=== PATIENT | male | born 1945 | race Caucasian/White ===

== ENCOUNTER 2017-10-07 14:40 | Outpatient (CLI) | payer MEDICARE ==
[2017-10-07] MEDS ORDERED: Gadobenate Dimeglumine 529 MG/1 ML (20ML VIAL) ONE (16:33)
--- NOTE | 2017-10-08 13:59 | MRI ---
MRI ABDOMEN WITH AND WITHOUT CONTRAST: HISTORY: Liver mass. COMPARISON: CT abdomen from 10/26/2016, CTA chest from 09/26/2011, and CT abdomen from 09/23/2013. TECHNIQUE: Multiplanar, multisequence MR images were obtained of the abdomen with and without IV contrast. FINDINGS: There are numerous well circumscribed foci of high T2 signal, lacking enhancement, scattered througho ut the liver, which represent simple cysts. There is a large, well circumscribed, nonenhancing mass measuring 10.9 cm in size that demonstrates isointense T1 signal and hyperintense T2 signal. This li chris represents a proteinaceous cyst. In the left lobe of the liver, there is a complex, well circum scribed structure demonstrating high T1 and heterogeneous T2 signal. After the administration of con trast, this area does not enhance when looking at the subtraction images, and this likely also repres ents a proteinaceous complex cyst. No suspicious enhancement is seen in the liver. No biliary dilat ation is present. There are peripelvic cysts in the left kidney, measuring up to 3.4 cm in size. The right kidney is n ot seen and may be surgically absent. The gallbladder, left adrenal gland, spleen, and pancreas are unremarkable. No abdominal adenopathy is seen. No marrow signal abnormality is present. The visualized inferior thorax and abdominal wall soft tiss ues are unremarkable. IMPRESSION: 1. There are numerous cysts in the liver. Two of these cysts are proteinaceous cysts with varying s ignal, as above. No abnormal enhancement is seen to suggest that any of these cysts are suspicious. 2. Parapelvic left renal cysts. 3. Absent right kidney. POS: [facility]
== END 2017-10-07 14:41 | disposition home or self-care (01) ==
LOC: MRI 14:40
PROVIDERS: ATTEND Family Medicine
DX: R16.0 Hepatomegaly, not elsewhere classified (principal); K76.89 Other specified diseases of liver; N28.1 Cyst of kidney, acquired; Z90.5 Acquired absence of kidney
CPT/HCPCS: 74183; 82565; A9579

== ENCOUNTER 2018-11-16 09:39 | Outpatient (CLI) | payer MEDICARE ==
[2018-11-16] MEDS ORDERED: Gadobenate Dimeglumine 529 MG/1 ML (20ML VIAL) ONE (10:15)
--- NOTE | 2018-11-16 12:03 | MRI ---
MRI ABDOMEN WITHOUT AND WITH CONTRAST: Comparison: 10-07-17 History: Status post right nephrectomy for renal cell cancer. Multiple cysts seen on prior MRI. Follo w up examination. Technique: Multiplanar, multisequence MRI images were obtained of the abdomen without and with IV con trast. FINDINGS: There are innumerable cysts in the liver. The largest measures 10.6 cm in greatest dimension. There i s a complex cyst containing high T1 signal in the left lobe of the liver which is stable measuring 6. 3 cm in greatest dimension. No biliary dilatation is seen. The gallbladder, common bile duct, left adrenal gland, spleen, and pancreas are unremarkable. The rig ht adrenal gland is not seen and may have also been removed. There are multiple stable parapelvic cys ts in the left kidney measuring up to 3.3 cm in size. No abdominal adenopathy is seen. No marrow signal abnormality is present. No abnormal enhancement is seen on this examination. IMPRESSION: 1. No evidence of recurrent or metastatic disease. 2. Stable left parapelvic renal cyst. 3. Stable hepatic cyst. POS: [facility]
== END 2018-11-16 09:40 | disposition home or self-care (01) ==
LOC: BICMRI 09:39
PROVIDERS: ATTEND Urology
DX: C64.1 Malignant neoplasm of right kidney, except renal pelvis (principal); C64.2 Malignant neoplasm of left kidney, except renal pelvis; N28.1 Cyst of kidney, acquired; K76.89 Other specified diseases of liver
CPT/HCPCS: 74183; A9577

== ENCOUNTER 2019-12-23 08:48 | Emergency (ER) | payer MEDICARE ==
[2019-12-23] MEDS ORDERED: Ondansetron PF 4 MG/2 ML Vial ONE (09:13)
[2019-12-23] MEDS ORDERED: Iopamidol-370 76% 500 ML 1 ML ONE (09:23)
--- NOTE | 2019-12-23 09:28 | RAD ---
Chest one view HISTORY: Dyspnea. Syncope. COMPARISON: 11/01/2018. FINDINGS: Cardiac silhouette is magnified by projection. Pulmonary vasculature is unremarkable. Mediastinum is midline with postoperative changes. Scattered calcified granulomata are consistent with healed granulomatous disease. No lobar consolidat ion or evidence of pneumothorax. associate software developer leads overlie the chest. IMPRESSION : Chronic-type findings are stable. No active cardiopulmonary abnormalities are demonstrated.
[2019-12-23 09:42] LABS: #Eosinphils 0.1 thou/uL (0.0-0.7); #Lymphocytes 1.1 thou/uL (1.20-3.40); #Monocytes 0.8 thou/uL (0.11-0.59); #Neutrophils 4.8 thou/uL (1.40-6.50); %Basophils 0.2 % (0.0-1.0); %Eosinophils 2.1 % (0.0-10.0); %Lymphocytes 16.1 % (21.0-51.0); %Monocytes 11.3 % (0.0-10.0); %Neutrophils 70.4 % (42.0-75.0); Mean Corpuscular HGB CONC 32.9 g/dL (32.0-36.0); Mean Corpuscular Volume 94.2 fL (78.0-98.0); Mean Platelet Volume 8.9 fL (7.4-10.4); Platelet Count 147 thou/uL (130-400); RBC Distribution Width 12.4 % (11.5-14.5); Red Blood Cell (RBC) Count 4.85 mill/uL (4.70-6.10); White Blood Cell (WBC) Count 6.8 thou/uL (4.8-10.8)
[2019-12-23 10:01] LABS: ALT (SGPT) 21 U/L (8-55); AST (SGOT) 27 U/L (5-34); Albumin 4.1 g/dL (3.4-4.8); Alkaline Phosphatase 93 U/L (40-110); Anion Gap 13 mmol/L (10-20); BUN (Urea Nitrogen) 20 mg/dL (8.4-25.7); Bilirubin, Total 0.8 mg/dL (0.2-1.2); CK (CPK) 373 U/L (30-200); Calc. Creatinine Clearance 0 mL/min (70-130); Calcium 8.6 mg/dL (7.8-10.44); Carbon Dioxide 24 mmol/L (23-31); Chloride 107 mmol/L (98-107); Estimated GFR-MDRD 52; Globulin 2.6 g/dL (2.4-3.5); Glucose 126 mg/dL (83-110); Lipase 24 U/L (8-78); Potassium 4.4 mmol/L (3.5-5.1); Protein, Total 6.7 g/dL (5.8-8.1); Sodium 140 mmol/L (136-145)
--- NOTE | 2019-12-23 10:34 | CT ---
CT arteriogram chest with IV contrast and 3-D imaging HISTORY: Chest pain. Dyspnea. FINDINGS: There is good contrast opacification pulmonary arteries and thoracic aorta with normal bran cheri of the great vessels at the aortic arch. Postoperative changes of the mediastinum. Calcified granulomata of the lungs consistent with healed g ranulomatous disease. Mild parenchymal scarring at the lung bases. No pleural fluid or mediastinal adenopathy. Within the partially visualized upper abdomen, hepatic cysts and postoperative changes correlate with prior CT abdomen exam. Small hiatal hernia is apparent. IMPRESSION : No CT evidence of pulmonary embolus. Chronic-type findings are stable.
--- NOTE | 2019-12-27 14:03 | EKG ---
Test Reason : SYNCOPE Blood Pressure : / mmHG Vent. Rate : 053 BPM Atrial Rate : 053 BPM P-R Int : 148 ms QRS Dur : 090 ms QT Int : 480 ms P-R-T Axes : 059 073 067 degrees QTc Int : 450 ms Sinus bradycardia Otherwise normal ECG Confirmed by SAURABH PARADA, MARIA L ([id number]), business editor BARTOLO GARZA ([id number]) on 12/27/2019 2:02:56 PM Referred By: Confirmed By:MARIA L WILEY MD
== END 2019-12-23 11:10 | disposition home or self-care (01) ==
LOC: ERS 08:48
DX: R55 Syncope and collapse (principal); E78.5 Hyperlipidemia, unspecified; I10 Essential (primary) hypertension; Z79.891 Long term (current) use of opiate analgesic; Z79.82 Long term (current) use of aspirin; Z79.899 Other long term (current) drug therapy
CPT/HCPCS: 36415; 71045; 71275; 80053; 82550; 83690; 83880; 84484; 85025; 85379; 93005; 96361; 96374; J2405; Q9967